=== PATIENT | female | born 1995 | race Caucasian/White ===

== ENCOUNTER 2017-09-12 11:49 | Day surgery (SDC) | payer SELFPAY ==
[2017-09-12 12:53] LABS: #Eosinphils 0.2 thou/uL (0.0-0.7); #Monocytes 0.5 thou/uL (0.11-0.59); #Neutrophils 5.6 thou/uL (1.40-6.50); %Basophils 0.1 % (0.0-1.0); %Eosinophils 1.9 % (0.0-10.0); %Lymphocytes 24.7 % (21.0-51.0); %Monocytes 5.5 % (0.0-10.0); %Neutrophils 67.8 % (42.0-75.0); Hemoglobin 12.8 g/dL (12.0-16.0); Mean Corpuscular HGB CONC 34.7 g/dL (32.0-36.0); Mean Corpuscular Hemoglobin 32.6 pg (27.0-31.0); Mean Platelet Volume 7.5 fL (7.4-10.4); Platelet Count 297 thou/uL (130-400); RBC Distribution Width 11.2 % (11.5-14.5); Red Blood Cell (RBC) Count 3.93 mill/uL (4.20-5.40); White Blood Cell (WBC) Count 8.3 thou/uL (4.8-10.8)
--- NOTE | 2017-09-12 13:08 | PDOC.EVN ---
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 There is a patient who is "7 mos" pregnanct there who came in s/p fall down 5 stairs at 1130 this AM. She has passed the ED triage and is clear and stable. cardiac activity confirmed in the ED. No VB, no LOF, no contractions. She is a [address] Johnson at [facility]. I advised the ED MD that she is ok to come to L&D for 4-6 hours OBS s/p fall per routine/protocol. L&D now aware. We willlet the Resident team know she is coming up as she is a seen by them.
[2017-09-12 13:13] LABS: ALT (SGPT) 10 U/L (8-55); AST (SGOT) 12 U/L (5-34); Albumin 3.4 g/dL (3.5-5.0); Alkaline Phosphatase 68 U/L (40-150); Anion Gap 13 mmol/L (10-20); BUN (Urea Nitrogen) 4 mg/dL (7.0-18.7); Bilirubin, Total 0.3 mg/dL (0.2-1.2); Calc. Creatinine Clearance 0 mL/min (70-130); Carbon Dioxide 20 mmol/L (22-29); Chloride 108 mmol/L (98-107); Estimated GFR-MDRD Greater than 90; Globulin 3.2 g/dL (2.4-3.5); Glucose 76 mg/dL (70-105); Protein, Total 6.6 g/dL (6.0-8.3); Sodium 137 mmol/L (136-145)
--- NOTE | 2017-09-12 15:19 | PDOC.LDHP ---
Labor and Delivery H&P Chief complaint: other (Patient here s/p Fall at 1130 this AM.) HPI: 22 yo multip, patient of the resident clinic, who fell walking on stairs..hit right lateral abdomen but no VB or LOF. Denies other issues. 28 weeks EGA. Patient first seen by the residents in L&D, now by me. Current gestational age (weeks): 28 Due date: 12/05/17 Dating criteria: first trimester ultrasound Grav: 5 Current complications: none Abnormal US findings: No Allergies/Adverse Reactions: Allergies Allergy/AdvReac Type Severity Reaction Status Date / Time No Known Allergies Allergy Unverified 09/12/17 14:39 Social history: other (Past hx craxk cocaine and MJ, also tobacco prior to this ) - Physical Exam Vital signs reviewed and normal: yes General: NAD Heart: RRR Lungs: CTAB Abdomen: gravid FHT: category 1 [place] contractions every: no real contraction pattern - Plan Plan: other (Assessment: Patient s/p fall on stairs with no overt evidence of PTL or abruption. Plan: 4 hour obs in L&D. Labs ordered by residents include blood type and KB. Order BPP for s/p fall. Follow for now.)
--- NOTE | 2017-09-12 15:23 | PDOC.LDHP ---
Labor and Delivery H&P Chief complaint: other (Fell down stairs) HPI: 22 yo @ 28 wks, dated by 1T US, is here after falling down stairs this morning. Says she woke up around 11 this morning and was going down her stairs and fell down 5-6 flights of stairs. Says she fell on her R. abdomen and back. Reports having a sharp pain down her abdomen briefly after. At this time denies any bleeding, LOF, ctx. Is feeling baby move. Denies any SOB or chest pain. Reports still having some lower bilateral pelvic pain. Not having pain on the R. side currenlty. Current gestational age (weeks): 28 Due date: 12/05/17 Dating criteria: first trimester ultrasound Grav: 6 Para: 3 (3640) OB History Details: No significant hx Current complications: none Abnormal US findings: No Past Medical History: Tobacco Abuse Marijuana and Crack/cocaine abuse Alcohol use Current medications: none Previous surgical history: none Social history: tobacco use (Before she knew she was . Does not smoke now. 1/2 -1 ppd smoker), alcohol use (Reported drinking before she knew she was ), drug use (Reported using marijuana and crack/cocaine before knowing she was ) - Physical Exam Vital signs reviewed and normal: yes General: NAD, resting Heart: RRR Lungs: nonlabored breathing Abdomen: gravid Extremeties: no edema FHT: category 1, variability present [place] contractions every: none - OB Labs Blood type: unknown RH: unknown Antibody Screen: unknown HIV: unknown RPR: unknown HEPSAg: unknown 1 hour GCT: unknown 3 hour GTT: unknown GBS: unknown - Assessment 22 yo @ 28 weeks here for assessment after abdominal trauma from falling down the stairs. - Plan Plan: observation in L&D -: Fall Down Stairs -BPP ordered. -KB test ordered to check for blood. -FHT monitoring for 4 hours. Cat 1 strip at this time. Moderate variability noted and accels seen. FHR 135-140. -Will continue to observe for now Noncompliant with meds -Not taking vitamin. Recommended she try the gummies Hx of Drug Abuse Early in -Reports Marijuana and Crack Cocaine use before she knew she was -Counseled on cessation. -Will want to check UDS upon delivery Hx of Smoking -Counseled on cessation <Zaire Quiroga - Last Filed: 09/12/17 15:20> - Plan Plan: observation in L&D (Faculty note: case reviewed. Agree with assessment and plan of care. Faculty H&P also in EMR. Patient's RH type has now returned as positive. BPP pending as of 1619.) <Kamaljit Barrios - Last Filed: 09/12/17 16:25> Allergies/Adverse Reactions: Allergies Allergy/AdvReac Type Severity Reaction Status Date / Time No Known Allergies Allergy Unverified 09/12/17 14:39
[2017-09-12] MEDS ORDERED: Lactated Ringer's 1,000 ML IV SCH (17:15)
--- NOTE | 2017-09-12 18:26 | ULT ---
LIMITED OBSTETRICAL ULTRASOUND BIOPHYSICAL PROFILE: Date: 09-12-17 History: 22-year-old female status post fall. Technique: Multiplanar grayscale sonographic imaging of the gravid uterus obtained. FINDINGS: anatomy is not fully assessed on this exam. Cervical length is approximately 5 cm. The placenta is located posteriorly demonstrating no evidence for previa or abruption. The placental tip is appro ximately 3.5 cm from the internal os. Breach presentation is noted. heart rate is approximately 119 beats/minute. Amniotic fluid index is 10 cm. The product assembler reports 2 out 2 score for tone, breathing, movement, and amniotic f luid for a normal 8 out of 8 biophysical profile score. IMPRESSION: Single intrauterine gestation demonstrating heart rate of 119 beats/minute in breach presentation. Po sterior placenta with no evidence for previa or obstruction. 8 out of 8 biophysical profile score. POS: [facility]
--- NOTE | 2017-09-12 19:31 | PDOC.EVN ---
Event Note - Event Note Event Note: 22 y/o @ 28 WGA who is here s/p fall down stairs. The patient contracted on the monitor for about an hour. She was just feeling minimal cramping during that time. Gave her a bolus of fluids and continued to watch her with external monitoring and toco. Her ctx resolved on the monitor. KB test was negative. Rh +. No vaginal bleeding. 02/02 BPP. -Will d/c home with close f/u at the Clinic. The patient has an appt scheduled for 09/16/17. Gave her strict instructions to return to the ED for any contractions, vaginal bleeding, loss of fluid, decreased movement. -Encouraged PO fluid intake and to continue taking PNV daily. <Violet Billingsley - Last Filed: 09/12/17 19:27> Assessment & Plan - Plan Plan/Continue to require rehab level of care: faculty note: Agree with plan of care. No evidence maternal nor compromise. KB is negative which reduces risk of PTL at this time. <Kamaljit Barrios - Last Filed: 09/12/17 19:34>
== END 2017-09-12 20:00 | disposition home or self-care (01) ==
LOC: ERS 11:49 → L&D/OP 14:03
PROVIDERS: ATTEND Obstetrics & Gynecology
DX: O9A.213 Injury, poisoning and certain other consequences of external causes complicating pregnancy, third trimester (principal); Z3A.28 28 weeks gestation of pregnancy
CPT/HCPCS: 36415; 76819; 80053; 85025; 85460; 86900; 86901

== ENCOUNTER 2017-10-11 14:17 | Day surgery (SDC) | payer OTHER, SELFPAY ==
[2017-10-11 15:18] VITALS: BMI 32.1
--- NOTE | 2017-10-11 15:49 | PDOC.LDHP ---
Labor and Delivery H&P Chief complaint: other (spotting for 3 days and left lower quadrant pain) HPI: Zaina Dukes is a 22 yo F at 32.1 wks based on 1T US with EDC of November. She presents to the L&D today with a three day history of vaginal spotting, states that the spotting is approximately dime sized and occurs about 3-4 times throughout the day. She endorses an light green vaginal discharge as well for the last few days. She denies loss of fluid, decreased movement , contractions. She does state that she has some constant lower abdominal pain that occasionally moves over to the right lower abdomen. Denies fever, chills, dysuria, increased urinary frequency. Current gestational age (weeks): 32 (32.1) Due date: 12/05/17 Dating criteria: first trimester ultrasound (at 6.4 wks) Grav: 4 Para: 3 (3733) OB History Details: This has been normal with the exception of a fall down the stairs in August. Patient had three contractions at that time and was monitored in the L& D for about a day and discharged home. She has a history of marijuana and cocaine use early in . States she was using before she found out she was and stopped at that time. States she has not used drugs since that time. She has been positive for BV multiple times throughout this , treated with PO and top metronidazole. She also tested positive for chlamydia in mar/apr and she was treated and had a negative JOSUE in May. Current complications: none Abnormal US findings: No Past Medical History: None Current medications: none Previous surgical history: none Social history: drug use (endorses cocaine, marijuana use up to 6 wks gestation and quit when she found out she was and has not used them since) - Physical Exam Vital signs reviewed and normal: yes General: NAD, resting Heart: RRR Lungs: nonlabored breathing Abdomen: NTTP Extremeties: no edema FHT: category 1 (baseline 130, accels present, no decels, mod variability) [place] contractions every: none - Vaginal Exam cm dilated: 0 (deferred) - OB Labs Blood type: B RH: positive Antibody Screen: negative HIV: negative RPR: negative HEPSAg: negative Rubella: non-immune - Assessment (1) Vaginal Spotting: (2) Abd Pain: - Plan -: (1) Vaginal Spotting: - History of Positive Chlamydia s/p neg JOSUE and history of BV multiple times in this - Not zachary, no LOF, no decreased FM - Checking VP3, GC/Ch, and UA (2) Abd Pain: - Likely round ligament pain - recommend tylenol, warm bath <Chris Cardenas - Last Filed: 10/11/17 15:46> <Rory Murdock - Last Filed: 10/11/17 16:25> Allergies/Adverse Reactions: Allergies Allergy/AdvReac Type Severity Reaction Status Date / Time No Known Allergies Allergy Verified 10/11/17 15:01 Attending Addendum - Attending Addendum Date/Time: 10/11/17 5864 I personally evaluated the patient and discussed the management with Dr. Cardenas. I agree with the History, Examination, Assessment and Plan documented above with any addition or exceptions noted below. <Rory Murdock - Last Filed: 10/11/17 16:25>
[2017-10-11 16:30] LABS: Bilirubin Negative (Negative); Blood, Urine Negative (Negative); Clarity CLEAR (Clear); Glucose, Urine (Dipstick) 100 mg/dL (Negative); Leukocyte Negative (Negative); Nitrite Negative (Negative); Protein, Urine (Dipstick) Negative (Neg-Trace); Specific Gravity, Urine 1.013 (1.002-1.036); pH, Urine 6.5 (5.0-9.0)
[2017-10-11 16:32] LABS: Bacteria/HPF None Seen HPF (None Seen); Hyaline Casts/LPF 0-3 HYALINE CAST LPF (0-3 Hyaline); Pathc Cast-AUWi Flag 0.14 (0-2.49); RBC/HPF None Seen HPF (0-3); Squamous Epithelial 0-3 HPF (0-3); WBC/HPF 0-3 HPF (0-3)
[2017-10-13 00:56] LABS: Chlamydia by PCR Not Detected (NotDetected); GC by PCR Not Detected (NotDetected)
== END 2017-10-11 18:05 | disposition home or self-care (01) ==
LOC: L&D/OP 14:17
PROVIDERS: ATTEND Emergency Medicine
DX: O26.853 Spotting complicating pregnancy, third trimester (principal); O99.89 Other specified diseases and conditions complicating pregnancy, childbirth and the puerperium; R10.32 Left lower quadrant pain; F14.90 Cocaine use, unspecified, uncomplicated; F12.90 Cannabis use, unspecified, uncomplicated; Z3A.32 32 weeks gestation of pregnancy; Z87.42 Personal history of other diseases of the female genital tract; Z86.19 Personal history of other infectious and parasitic diseases
CPT/HCPCS: 51701; 81001; 87480; 87491; 87510; 87591; 87660; 99282; A4353

== ENCOUNTER 2017-10-23 11:05 | Day surgery (SDC) | payer OTHER ==
[2017-10-23 12:04] VITALS: BMI 37.4
[2017-10-23 13:05] LABS: Bilirubin Negative (Negative); Blood, Urine Negative (Negative); Clarity CLOUDY (Clear); Glucose, Urine (Dipstick) Negative (Negative); Leukocyte Moderate (Negative); Nitrite Negative (Negative); Protein, Urine (Dipstick) Negative (Neg-Trace); Specific Gravity, Urine 1.019 (1.002-1.036)
[2017-10-23 13:08] LABS: Bacteria/HPF 1+ HPF (None Seen); Hyaline Casts/LPF 4-6 HYALINE CAST LPF (0-3 Hyaline); Pathc Cast-AUWi Flag 0.72 (0-2.49)
[2017-10-23 13:10] LABS: RBC/HPF 0-3 HPF (0-3)
[2017-10-23 14:38] LABS: Amphetamine Not Detected (NotDetected); Barbiturates Screen Not Detected (NotDetected); Benzodiazepine Screen Not Detected (NotDetected); Cocaine Metabolite Screen Not Detected (NotDetected); Medtox Control Line Valid? VALID (VALID); Medtox Reader # READER 4; Methadone Not Detected (NotDetected); Methamphetamine Not Detected (NotDetected); Opiate Screen Not Detected (NotDetected); Oxycodone Screen Not Detected (NotDetected); Phencyclidine (PCP) Not Detected (NotDetected); THC/Cannabinoid Screen Not Detected (NotDetected); Tricyclic Screen Not Detected (NotDetected)
--- NOTE | 2017-10-23 20:44 | PDOC.LDHP ---
Addendum entered and electronically signed by Marbella Garcia MD 10/23/17 20:55: urine: squam epith 11-20, +LE, and 1+bact. Will await urine culture results. VP3 negative. Okay to dc patient and will follow-up on urine culture. Original Note: Labor and Delivery H&P Chief complaint: other (bilateral lowe back pain and lower abdominal pain) HPI: 22 yo @ 34.3wks by 6.4wk US presents to L&D for bilateral lower abdominal and lower back pain. She denies vaginal bleeding, vaginal fluid or discharge, or contractions. She endorses movement. She denies dysuria. She states she was here two weeks ago for vaginal bleeding but hasn't had any bleeding since then. GATE PERSON: Pap NILM Gen: denies weakness, fatigue HEENT: denies vision changes Abdomen: endorse bilateral lowe abdominal pain and suprapubic pain Cardio: denies chest pain Resp: denies shortness of breath or cough Skin: denies rash or lesions msk: endorses lowe back pain Current gestational age (weeks): 34 (34.3) Due date: 12/05/17 Dating criteria: first trimester ultrasound Grav: 4 Para: 3 (7587) OB History Details: deliveries all >37wks, ~6 lb babies, no complications per mom Current complications: other (anemia of ) Abnormal US findings: No Past Medical History: Crack cocaine abuse ~ 6wks gestation. Once she found out she was , she quit using and has had a negative UDS since then. Incarcerated during . Does not have custody of other children. Father of baby incarcerated. Current medications: pre-daniel vitamins Previous surgical history: none Social history: other (hx of crack cocaine abuse; quit ~6 weeks of ; does endorse smoking a cigarette in July; denies any alcohol use since early in her ) - Physical Exam Vital signs reviewed and normal: yes General: NAD, resting Heart: RRR Lungs: CTAB Abdomen: other (gravid; lowe back tender paper machine to CVA testing but tende at multiple locations (thoracic and lumbar).) Extremeties: no edema FHT: category 2, variable decelerations, variability present (moderate; accels present) [place] contractions every: not zachary - OB Labs Blood type: B RH: positive HIV: negative RPR: negative HEPSAg: negative 1 hour GCT: negative Urine drug screen: negative Rubella: non-immune Additional Labs: quant gold negative chlamydia +, JOSUE on 06/08/2017 negative gonorrhea negative UDS negative on 06/2017 Hep C NILM BV, treated - Assessment 22 yo @ 34.3wks by 6.4wk US and presents with bilateral lowe back and abdominal pain. - Plan -: Plan: 1.) Lower abdominal pain and lower back pain- Concern for UTI or vaginal infection. Will order a UA and culture and VP3. 2.)sIUP-normal second tri anatomy scan. Recommend routine follow-up with pcp 3.)Maternal hx of drug abuse-recent UDS negative 4.)Maternal hx of incarceration-quant gold negative and hep c negative 5.)Rubella nonimmune <Marbella Garcia - Last Filed: 10/23/17 20:36> <Christin Spencer - Last Filed: 10/24/17 09:09> Allergies/Adverse Reactions: Allergies Allergy/AdvReac Type Severity Reaction Status Date / Time No Known Allergies Allergy Verified 10/11/17 15:01 Attending Addendum - Attending Addendum Date/Time: 10/24/17905 I personally evaluated the patient and discussed the management with Dr. Morgan. I agree with the History, Examination, Assessment and Plan documented above with any addition or exceptions noted below. Pt seen and examined independently of resident. Pt with likely mechanical back pain associated with late . Urine culture pending. Will treat if indicated. Can d/c to home with close followup. Encouraged conservative measures for back pain in . Return precautions reviewed. <Christin Spencer - Last Filed: 10/24/17 09:09>
== END 2017-10-23 14:15 | disposition home or self-care (01) ==
LOC: L&D/OP 11:05
PROVIDERS: ATTEND Family Medicine
DX: O99.89 Other specified diseases and conditions complicating pregnancy, childbirth and the puerperium (principal); R10.30 Lower abdominal pain, unspecified; M54.5 Low back pain; O99.323 Drug use complicating pregnancy, third trimester; F14.10 Cocaine abuse, uncomplicated; O99.333 Smoking (tobacco) complicating pregnancy, third trimester; F17.210 Nicotine dependence, cigarettes, uncomplicated; Z79.899 Other long term (current) drug therapy; Z3A.34 34 weeks gestation of pregnancy
CPT/HCPCS: 80306; 81003; 81015; 87086; 87480; 87510; 87660; 99284

== ENCOUNTER 2017-11-17 15:03 | Day surgery (SDC) | payer OTHER ==
[2017-11-17 15:50] VITALS: BMI 34.3
--- NOTE | 2017-11-17 17:00 | PDOC.LDHP ---
Labor and Delivery H&P Chief complaint: contractions HPI: 22 yo @ 37.3 WGA by 6.4 wk US presents with regular painful contractions since a little after 11 am this morning. Pt states that she had an appt at [facility] earlier this morning where she was checked and told that she was dilated to 1cm. Shortly after leaving, she began having contractions q6-10min which then became more frequent, every 4-5 min, so she came into L&D for cervical check. Denies any VB or LOF but has noticed some thick, mucous-like material on her underwear. +FM complications: 1) Drug use in 2) Tobacco use in 3) Rubella non-immune 4) CT positive s/p treatment Current gestational age (weeks): 37 (3) Due date: 12/05/17 Dating criteria: first trimester ultrasound Grav: 4 Para: 3 Current complications: other (see above) Abnormal US findings: Yes (G) Current medications: none Previous surgical history: none Social history: none - Physical Exam Vital signs reviewed and normal: yes General: NAD Heart: RRR Lungs: CTAB Abdomen: NTTP Extremeties: no edema FHT: category 1 (baseline 130, moderate variability) [place] contractions every: 4-6 min - Vaginal Exam cm dilated: 2 Effacement: 50% Station: -3 - OB Labs Blood type: B RH: positive Antibody Screen: negative HIV: negative RPR: negative 1 hour GCT: negative (128) GBS: negative (per pt) Urine drug screen: negative (08/24/17) Rubella: non-immune Additional Labs: Hep C negative TB screen negative Ucx negative Quad screen negative Pap NILM - Assessment Latent labor - Plan Plan: other (discharge to home) -: 22 yo @ 37.3 by 6.4 wk US presents w/: 1) sIUP in latent labor: minimal interval cervical change, ok to discharge home. Labor precautions reviewed. Pt lives a short distance (7 min) from the hospital. 2) Drug use in : recent UDS in all negative; UDS sent 3) Tobacco use in : states that she has quit 4) Rubella non-immune: will need MMR 5) CT positive s/p treatment: negative JOSUE in 2T, plan was to repeat in 3T, need updated records. <Duarte Llanes - Last Filed: 11/17/17 16:55> <Deja Adame - Last Filed: 11/18/17 13:13> Allergies/Adverse Reactions: Allergies Allergy/AdvReac Type Severity Reaction Status Date / Time No Known Allergies Allergy Verified 10/11/17 15:01 Attending Addendum - Attending Addendum Date/Time: 11/18/17 7044 I personally evaluated the patient and discussed the management with Dr. Llanes I agree with the History, Examination, Assessment and Plan documented above with any addition or exceptions noted below. Nonpainful, intermittent contractions. Unchanged exam. FHT cat 1. Latent labor. Precautions discussed. Patient to return if symptoms progress or she becomes concerned. ABrayMD <Deja Adame - Last Filed: 11/18/17 13:13>
[2017-11-17 17:36] LABS: Amphetamine Not Detected (NotDetected); Barbiturates Screen Not Detected (NotDetected); Benzodiazepine Screen Not Detected (NotDetected); Cocaine Metabolite Screen Not Detected (NotDetected); Medtox Control Line Valid? VALID (VALID); Medtox Reader # READER 4; Methadone Not Detected (NotDetected); Methamphetamine Not Detected (NotDetected); Opiate Screen Not Detected (NotDetected); Oxycodone Screen Not Detected (NotDetected); Phencyclidine (PCP) Not Detected (NotDetected); THC/Cannabinoid Screen Not Detected (NotDetected); Tricyclic Screen Not Detected (NotDetected)
== END 2017-11-17 17:19 | disposition home or self-care (01) ==
LOC: L&D/OP 15:03
PROVIDERS: ATTEND Emergency Medicine
DX: O47.1 False labor at or after 37 completed weeks of gestation (principal); O99.323 Drug use complicating pregnancy, third trimester; O99.333 Smoking (tobacco) complicating pregnancy, third trimester; Z3A.37 37 weeks gestation of pregnancy
CPT/HCPCS: 80306; 99282

== ENCOUNTER 2017-11-17 23:48 | Day surgery (SDC) | payer OTHER ==
[2017-11-18 00:16] VITALS: BMI 34.3
[2017-11-18 00:34] LABS: Amnisure Internal Control QC ACCEPTABLE (ACCEPTABLE)
[2017-11-18 00:45] LABS: Amnisure Test No Membranes Rupture (No Rupture)
--- NOTE | 2017-11-18 01:12 | PDOC.LDHP ---
Labor and Delivery H&P Chief complaint: contractions, loss of fluid HPI: Zaina Dukes is a 22 year old @ 37.4 wks by 6.4 wk US presents with regular painful contractions starting at 11 am on 11/17/17. She came to [facility] L&D and her check was 50/-3 and she made no change after 2 hours. She was discharged and has continued to have contractions. At approximately 9 pm, patient states that she started noticing leakage of fluid when she goes to the restroom. States that the fluid is clear. Denies vaginal discharge and vaginal bleeding. She states that her contractions are more frequent compared to yesterday. They are now every 5 minutes. +FM. Complications: 1) Drug use in 2) Tobacco use in 3) Rubella non-immune 4) CT positive s/p treatment Current gestational age (weeks): 37 (4) Due date: 12/05/17 Dating criteria: first trimester ultrasound Grav: 4 Para: 3 (7643) Current complications: other (see above) Current medications: pre- vitamins Previous surgical history: none Social history: tobacco use, alcohol use, drug use - Physical Exam Vital signs reviewed and normal: yes General: NAD, resting, breathing through contractions Heart: RRR Lungs: nonlabored breathing Abdomen: NTTP Extremeties: no edema FHT: category 1 - Vaginal Exam cm dilated: 2 Effacement: 50% Station: -3 - OB Labs Blood type: B RH: positive Antibody Screen: negative HIV: negative RPR: negative 1 hour GCT: negative (128) GBS: negative (per pt) Urine drug screen: negative (08/24/17) Rubella: non-immune - Assessment Latent Labor - Plan Plan: other -: 22 yo @ 37.4 by 6.4 wk US presents with: 1) sIUP in latent labor: no cervical exchange administrator the last 10 hours. Okay to discharge home. Labor precautions reviewed. Patient lives close to hospital, approximately 7 min away. 2) Drug use in : recent UDS was all negative, UDS sent yesterday 3) Tobacco use in : endorse use early in but no more 4) Rubella non-immune: will need MMR 5) Chlamydia positive: s/p treatment. Neg carline in 2T. Plan was to repeat in 3T. <Ronald,Chris - Last Filed: 11/18/17 01:06> <Yuval Johnson - Last Filed: 11/18/17 07:11> Allergies/Adverse Reactions: Allergies Allergy/AdvReac Type Severity Reaction Status Date / Time No Known Allergies Allergy Verified 10/11/17 15:01 Attending Addendum - Attending Addendum Date/Time: 11/18/17 0710 I personally evaluated the patient and discussed the management with Dr. Cardenas. I agree with and repeated valdes portions the History, Examination, Assessment and Plan documented above with any addition or exceptions noted below. Not in labor. Not ruptured. Ok for d/c home. Discussed return precautions. <Yuval Johnson - Last Filed: 11/18/17 07:11>
== END 2017-11-18 01:25 | disposition home or self-care (01) ==
LOC: L&D/OP 23:48
PROVIDERS: ATTEND Emergency Medicine
DX: O47.1 False labor at or after 37 completed weeks of gestation (principal); Z3A.37 37 weeks gestation of pregnancy; Z79.899 Other long term (current) drug therapy
CPT/HCPCS: 84112; 99283

== ENCOUNTER 2017-11-21 22:58 | Day surgery (SDC) | payer OTHER ==
[2017-11-21 23:36] VITALS: BP 133/72; TEMP 98.9; BMI 34.3
--- NOTE | 2017-11-22 02:06 | PDOC.LDHP ---
Labor and Delivery H&P Chief complaint: contractions HPI: 22 yo dated by 1T US here with complaint of contractions for the past week that have worsened over the past 12 hours. She states that they have been every 6-10 minutes all day. She denies decreased movement, vaginal bleeding, or loss of fluid. Her has been complicated by drug use during the first trimester. Current gestational age (weeks): 38 Due date: 12/05/17 Dating criteria: last menstrual period, first trimester ultrasound Grav: 4 Para: 3 (7588) Current complications: other (Drug use during 1T) Current medications: pre- vitamins Previous surgical history: none Social history: tobacco use (previous), alcohol use (not during ), drug use (previous) - Physical Exam Vital signs reviewed and normal: yes General: NAD Heart: RRR Lungs: CTAB Abdomen: gravid Extremeties: no edema FHT: category 1, variability present, absent or minimal variables [place] contractions every: 10 - Vaginal Exam cm dilated: 2 Effacement: 50% Station: -3 - OB Labs Blood type: B RH: positive Antibody Screen: negative HIV: negative RPR: negative HEPSAg: negative 1 hour GCT: negative GBS: negative Urine drug screen: negative (08/24/17) Rubella: non-immune - Assessment Term , latent labor - Plan -: This is a 22 yo at 38 weeks gestation who is currently in latent labor. monitor shows cat1 strip. No concern for ROM. SVE is similar to last check 3 days ago. Monitor on L&D for 2 hours and recheck. Continue to monitor if there is change otherwise will discharge with follow up at [facility] as previously scheduled. <Teofilo Haque - Last Filed: 11/22/17 02:04> <Deja Adame - Last Filed: 11/22/17 20:22> Allergies/Adverse Reactions: Allergies Allergy/AdvReac Type Severity Reaction Status Date / Time No Known Allergies Allergy Verified 11/21/17 23:37 Attending Addendum - Attending Addendum Date/Time: 11/22/17 0200 I personally evaluated the patient and discussed the management with Dr. Haque and Dr. Mora I agree with the History, Examination, Assessment and Plan documented above with any addition or exceptions noted below. 22 yo female at 38.0 wks presents for rule out labor. Patient reports mildly, painful contractions every 10 or so minutes. No VB, LOF, or discharge. + FM. SVE unchanged over 2 hours of monitoring. FHT cat 1 and reassuring. Precautions discussed. Follow up with PCP on . Ok to d/c to home. Valerio <Deja Adame - Last Filed: 11/22/17 20:22>
== END 2017-11-22 01:57 | disposition home or self-care (01) ==
LOC: L&D/OP 22:58
PROVIDERS: ATTEND Student in an Organized Health Care Education/Training Program
DX: O47.1 False labor at or after 37 completed weeks of gestation (principal); O99.333 Smoking (tobacco) complicating pregnancy, third trimester; F17.200 Nicotine dependence, unspecified, uncomplicated; Z3A.38 38 weeks gestation of pregnancy; Z79.899 Other long term (current) drug therapy
CPT/HCPCS: 99283

== ENCOUNTER 2017-11-29 08:28 | Day surgery (SDC) | payer OTHER ==
[2017-11-29 08:51] VITALS: BMI 35.3
[2017-11-29 10:43] LABS: Amnisure Internal Control QC ACCEPTABLE (ACCEPTABLE); Amnisure Test No Membranes Rupture (No Rupture)
[2017-11-29 11:11] VITALS: BP 125/70; TEMP 98.6
[2017-11-29 11:11] LABS: Bilirubin Negative (Negative); Blood, Urine Negative (Negative); Clarity CLEAR (Clear); Glucose, Urine (Dipstick) Negative (Negative); Leukocyte Negative (Negative); Nitrite Negative (Negative); Protein, Urine (Dipstick) Negative (Neg-Trace); Specific Gravity, Urine 1.022 (1.002-1.036)
[2017-11-29 11:21] LABS: Medtox Reader # READER 1; THC/Cannabinoid Screen Not Detected (NotDetected)
[2017-11-29 11:22] LABS: Amphetamine Not Detected (NotDetected); Barbiturates Screen Not Detected (NotDetected); Benzodiazepine Screen Not Detected (NotDetected); Cocaine Metabolite Screen Not Detected (NotDetected); Medtox Control Line Valid? VALID (VALID); Methadone Not Detected (NotDetected); Methamphetamine Not Detected (NotDetected); Opiate Screen Not Detected (NotDetected); Oxycodone Screen Not Detected (NotDetected); Phencyclidine (PCP) Not Detected (NotDetected); Tricyclic Screen Not Detected (NotDetected)
--- NOTE | 2017-11-29 12:17 | PDOC.FPRHP ---
- History of Present Illness Chief Complaint: Brown vaginal spotting, possible LOF History of Present Illness: 22 year old G - Allergies/Adverse Reactions Allergies Allergy/AdvReac Type Severity Reaction Status Date / Time No Known Allergies Allergy Verified 11/21/17 23:37 - Home Medications Medication Instructions Recorded Confirmed Type No Known [No Known] 11/29/17 11/29/17 History - History PMHx: PSHx: FHx: Social: - Vital signs BP: [] HR: [] RR: [] Tmax: [] Pox: []% on [] Wt: [] FMR H&P: Results - Labs Lab results: Urine Ketones Negative mg/dL (Negative) 11/29/17 10:40 Urine Blood Negative (Negative) 11/29/17 10:40 Urine Nitrite Negative (Negative) 11/29/17 10:40 Ur Leukocyte Esterase Negative (Negative) 11/29/17 10:40 FMR H&P: Upper Level - Plan Date/Time: 11/29/17 1217 I, [], have evaluated this patient and agree with findings/plan as outlined by internet project manager resident. Pertinent changes/additions are listed here.
--- NOTE | 2017-11-29 21:27 | PDOC.LDHP ---
Labor and Delivery H&P Chief complaint: loss of fluid (Possible), other (Brown discharge) HPI: 22 year old at 39.1 wks by 1T US/LMP with MILKA of 12/05/2017 presents with brown vaginal spotting and possible LoF. She states that over the last two days she has felt as though she is leaking fluid. She has been soaking through several pads a day. Additionally, she went to wipe after using the restroom today and noted brown, bloody mucous on her toilet paper. She got concerned and decided to come to L&D. Patient denies contractions but endorses pressure in lower back that presents periodically. She denies abdominal pain, headaches, vision changes, shortness of breath, or swelling. ROS: General: Denies fever, chills, changes in appetite HEENT: Denies vision changes, headache, or sore throat Cards: Denies chest pain or palpitations Resp: Denies shortness of breath or cough AKILA: Denies edema or Joint pains GI: Denies abdominal pain, diarrhea, or constipation : Denies dysuria. Endorses urinary frequency Current gestational age (weeks): 39 (39.1) Due date: 12/05/17 Dating criteria: last menstrual period, first trimester ultrasound Grav: 4 Para: 3 OB History Details: 1. Chlamydia with negative JOSUE 2. History of drug abuse in early 3. Rubella non-immune Current complications: none Abnormal US findings: No Past Medical History: 1. History of drug abuse Current medications: pre-daniel vitamins Social history: tobacco use (previous), drug use (in first trimester) - Physical Exam Vital signs reviewed and normal: yes General: NAD, resting Heart: RRR Lungs: CTAB Abdomen: gravid Extremeties: no edema FHT: category 1, variability present [place] contractions every: Irregular - Vaginal Exam cm dilated: 4 Effacement: 0% Station: -3 - OB Labs Blood type: B RH: positive Antibody Screen: negative HIV: negative RPR: negative Rubella: non-immune - Assessment 1. Possible LoF - Amnisure negative - Cervical check 4/0/-3 posterior on initial check; repeat check 2 hours later was the same 2. Brown vaginal spotting - Aminsure negative - UA negative - UDS negative - If persists, recommend VP3, GC/C in PNC 3. Latent labor - 4/0/-3; unchanged 2 hours later - Labor precautions given Labor precautions provided. Patient without cervical change and negative workup. Discharged home with return precautions. Advised to be seen in PNC tomorrow as scheduled. Patient voiced her understanding. - Plan Plan: observation in L&D <Pattie Jay - Last Filed: 11/29/17 21:40> <Rory Murdock - Last Filed: 11/30/17 08:35> Allergies/Adverse Reactions: Allergies Allergy/AdvReac Type Severity Reaction Status Date / Time No Known Allergies Allergy Verified 11/29/17 22:48 Attending Addendum - Attending Addendum Date/Time: 11/30/17 0834 I personally evaluated the patient and discussed the management with Dr. Jay. I agree with the History, Examination, Assessment and Plan documented above with any addition or exceptions noted below. <Rory Murdock - Last Filed: 11/30/17 08:35>
== END 2017-11-29 12:50 | disposition home or self-care (01) ==
LOC: L&D/OP 08:28 → ER/OP 08:28 → L&D/OP 12:50
PROVIDERS: ATTEND Emergency Medicine
DX: O26.853 Spotting complicating pregnancy, third trimester (principal); Z3A.39 39 weeks gestation of pregnancy; Z79.899 Other long term (current) drug therapy
CPT/HCPCS: 51701; 80306; 81003; 84112; 99284

== ENCOUNTER 2017-11-29 22:30 | Inpatient (IN) | payer OTHER ==
[2017-11-29] MEDS ORDERED: Promethazine HCl 25 MG/ML VIAL IM PRN (22:47)
[2017-11-29] MEDS ORDERED: Acetaminophen 500 MG TAB PO PRN (22:47)
[2017-11-29] MEDS ORDERED: Ondansetron HCl/PF 4 MG/2 ML Vial IVP PRN (22:47)
--- NOTE | 2017-11-29 22:52 | PDOC.EVN ---
Event Note - Event Note Event Note: JACKIE Loan Workout Officer: @2209 called into APU bed 2 for this patient that just arrived to the unit. She was seen earlier in the day. Patient of the Clinic, Dr Johnson. Called to see patient for passing vag clots at term. CX about 4cm...I arrived to the room with patient in moderate discomfort but NAD. Residents notified and arrived within 5 minutes of my call...I have turned care to the attending who is her physician. I have recommended abruption labs (fibronogen, T&C, PT/PTT ) and 2 IVs for now. Anesthesia to be notified. Exam by RN. Possible marginal placental abruption. Care by primary team now.
[2017-11-29 22:55] VITALS: BMI 35.3
[2017-11-29] MEDS ORDERED: Lactated Ringer's 1,000 ML IV SCH (23:00)
[2017-11-29 23:05] LABS: Hemoglobin 12.7 g/dL (12.0-16.0); Mean Corpuscular HGB CONC 34.6 g/dL (32.0-36.0); Mean Corpuscular Hemoglobin 30.8 pg (27.0-31.0); Mean Platelet Volume 8.4 fL (7.4-10.4); Platelet Count 254 thou/uL (130-400); RBC Distribution Width 12.1 % (11.5-14.5); Red Blood Cell (RBC) Count 4.12 mill/uL (4.20-5.40); White Blood Cell (WBC) Count 8.8 thou/uL (4.8-10.8)
[2017-11-29] MEDS ORDERED: Lidocaine 1% (PF) 30 ML VIAL SC PRN (23:09)
[2017-11-29 23:14] LABS: Fibrinogen 467 mg/dL (253-463)
[2017-11-29 23:15] LABS: INR-International Normal Ratio 0.9; PTT 25.8 SEC (22.9-36.1); Prothrombin Time 12.5 SEC (12.0-14.7)
[2017-11-29 23:16] LABS: D-Dimer Test 1.01 *mcg/mL (0.27-0.43)
--- NOTE | 2017-11-29 23:18 | PDOC.LDHP ---
Labor and Delivery H&P Chief complaint: other (Vaginal Bleeding) HPI: 22 y/o @ 39.1 WGA by 6.4 wk sono presents due to vaginal bleeding. The patient was seen earlier today in L&D for some bloody mucus discharge, and had been zachary intermittently, but then was subsequently discharged. At 10 pm the patient reports she started bleeding significantly, and the bleeding was different than before. It was bright red blood. She continued to pass more blood with every contraction. Her ctx had become more regular and painful starting around 9pm. She denies any LOF. She reports some decreased movement today. Current gestational age (weeks): 39 (39w1d) Due date: 12/05/17 Dating criteria: first trimester ultrasound (6.4 wk US) Grav: 6 Para: 3 OB History Details: 3 Term 's 2 First Trimester SAB's Abnormal US findings: No Current medications: pre-daniel vitamins, other (Hydroxyzine) Social history: drug use (Crack cocaine use and Marijuana use earlier in (quit when 6 weeks )) - Physical Exam Vital signs reviewed and normal: yes General: NAD, breathing through contractions Heart: RRR Lungs: CTAB Abdomen: gravid Extremeties: no edema FHT: category 1, variability present [place] contractions every: 3-4 minutes - Vaginal Exam cm dilated: 5 Effacement: 90% Station: -3 - OB Labs Blood type: B RH: positive Antibody Screen: negative HIV: negative RPR: negative HEPSAg: negative 1 hour GCT: positive 3 hour GTT: negative GBS: negative Urine drug screen: negative Rubella: non-immune - Assessment 1. Vaginal Bleeding likely 2/2 Placental Abruption BP is stable, Cat I strip, Placenta is fundal, fetus is vertex. Mom is Rh positive and GBS negative. -Admit to L&D -Continous monitoring -PT/INR, PTT -Type & Screen 2 units -Fibrinogen -D dimer -Anticipate delivery at this time, concern that mom and baby may not tolerate vaginal delivery, but will do expectant management at this time. Counseled mom that may need to go back for if fetus does not tolerate labor. 2. Cocaine and Marijuana abuse during Pt reports that she quit early in . UDS were all negative in clinic. -UDS - Plan Plan: admit to L&D, informed consent obtained, anesthesia consult for pain management <Violet Billingsley - Last Filed: 11/29/17 23:32> <Christin Spencer - Last Filed: 11/30/17 00:55> Allergies/Adverse Reactions: Allergies Allergy/AdvReac Type Severity Reaction Status Date / Time No Known Allergies Allergy Verified 11/29/17 22:48 Attending Addendum - Attending Addendum Date/Time: 11/30/17 0052 I personally evaluated the patient and discussed the management with Dr. Billingsley I agree with the History, Examination, Assessment and Plan documented above with any addition or exceptions noted below. 30yo at 39w1d dated by 6w4d US presenting for vaginal bleeding that started around 10pm with passage of large clots complicated by drug use early in and excessive maternal weight gain Likely placental abruption causing bleeding. Abruption labs WNL at this time and FHT is category 1. Will manage expectantly at this time. If any signs of distress will move quickly toward <Christin Spencer - Last Filed: 11/30/17 00:55>
[2017-11-29 23:26] LABS: FSP-Qualitative ABNORMAL (Normal); FSP-Semiquantitative >=5 & <20 mcg/mL (Less than 5)
[2017-11-29] MEDS ORDERED: Bupivacaine 0.5% 20 ML, fentaNYL Citrate/PF 400 MCG in Sodium Chloride 0.9% 72 ML EPIDURAL SCH (23:45)
[2017-11-29] MEDS ORDERED: DISCONTINUE ALL PREVIOUS NARCOTICS FS SCH (23:45)
[2017-11-29] MEDS: Lactated Ringer's 1,000 ML IV SCH (23:52)
[2017-11-30 00:02] LABS: Syphilis Antibody Nonreactive (Nonreactive); Syphilis Antibody Index 0.02 S/CO (<1.00 Non-Reactive)
[2017-11-30 00:12] LABS: HBSAg Index 0.29 S/CO (0-0.99); HIV (1/2) Antibody/Antigen Non-Reactive (NonReactive); Hep B Surf Ag Non-Reactive S/CO (NonReactive)
--- NOTE | 2017-11-30 00:51 | PDOC.LDPN ---
Labor & Delivery Progress Note - Subjective Subjective: comfortable (vaginal bleeding has slowed down) - Objective Vital signs reviewed and normal: yes General: NAD Uterine fundus: non tender SVE: By Dr. Billingsley and Dr. Spencer Dilation: 5 Effacement: 90% Station: -3 FHT: category 1, variability present [place] contractions every: 2-3 minutes Plan: pitocin for augmentation, other (Pt just received epidural) <Violet Billingsley - Last Filed: 11/30/17 00:50> Attending Addendum - Attending Addendum Date/Time: 11/30/176 I personally evaluated the patient and discussed the management with Dr. Billingsley I agree with the History, Examination, Assessment and Plan documented above with any addition or exceptions noted below. No cervical mash filter cloth changer last few hours. FHT has been category 1 with accels, moderate variability and no decels. Reassuring tracing. Given likely abruption and need to move toward delivery quickly, will augment with pitocin at this time <Christin Spencer - Last Filed: 11/30/17 00:58>
[2017-11-30] MEDS ORDERED: Ibuprofen 800 MG TAB PO PRN (00:52)
[2017-11-30] MEDS: NS w/ Oxytocin 10 units 500 ML IV SCH (01:04)
[2017-11-30] MEDS ORDERED: Promethazine HCl 25 MG/ML VIAL IM PRN (01:12)
[2017-11-30] MEDS ORDERED: Ondansetron HCl/PF 4 MG/2 ML Vial IVP PRN ×2 (01:12→07:29)
[2017-11-30] MEDS ORDERED: Eucerin (Mineral Oil/Petrolatum,White) 30 gm Jar TOP PRN (01:12)
[2017-11-30] MEDS ORDERED: diphenhydrAMINE 50 MG/ML VIAL IVP PRN (01:12)
[2017-11-30] MEDS ORDERED: Lactated Ringer's 500 ML IV PRN (01:12)
[2017-11-30] MEDS ORDERED: Acetaminophen 325 MG TAB PO PRN (01:12)
[2017-11-30] MEDS ORDERED: ePHEDrine/0.9% NaCl/PF SYRINGE 50 mg/10 ml SLOW IVP PRN (01:12)
[2017-11-30] MEDS ORDERED: Naloxone HCl 0.4 mg/ml Vial IVP PRN ×2 (01:12)
[2017-11-30] MEDS ORDERED: Communication Order-Pharmacy FS SCH (01:15)
[2017-11-30] MEDS ORDERED: Fentanyl 4mcg/Marcaine 0.1% Cassette 100 ML EPIDURAL SCH (01:15)
[2017-11-30 01:19] LABS: Amphetamine Not Detected (NotDetected); Barbiturates Screen Not Detected (NotDetected); Benzodiazepine Screen Not Detected (NotDetected); Cocaine Metabolite Screen Not Detected (NotDetected); Medtox Control Line Valid? VALID (VALID); Medtox Reader # READER 4; Methadone Not Detected (NotDetected); Methamphetamine Not Detected (NotDetected); Opiate Screen Not Detected (NotDetected); Oxycodone Screen Not Detected (NotDetected); Phencyclidine (PCP) Not Detected (NotDetected); THC/Cannabinoid Screen Not Detected (NotDetected); Tricyclic Screen Not Detected (NotDetected)
--- NOTE | 2017-11-30 03:00 | PDOC.LDPN ---
Labor & Delivery Progress Note - Subjective Subjective: comfortable - Objective Vital signs reviewed and normal: yes General: NAD Uterine fundus: non tender SVE: @ [address] Billingsley Dilation: 6 Effacement: 90% Station: -3 FHT: category 2 (She had one late decel for 40 secs, but has otherwise been a cat 1 strip), variability present [place] contractions every: 2-3 minutes Plan: continue plan of care, pitocin for augmentation
[2017-11-30] MEDS ORDERED: Misoprostol 200 MCG TAB ONE (04:58)
[2017-11-30] MEDS ORDERED: Misoprostol 200 MCG TAB PR SCH (05:00)
[2017-11-30] MEDS: NS / Oxytocin 40 units/1000ml 1,000 ML IV PRN ×2 (05:32→06:25)
[2017-11-30] MEDS ORDERED: Measles/Mumps/Rubella 10 MCG/0.5 ML VIAL SC ONE (05:42)
[2017-11-30] MEDS ORDERED: Adacel (T-DAP) 0.5 ML VIAL IM ONE (07:29)
[2017-11-30] MEDS ORDERED: Bisacodyl 10 MG SUPP PR PRN (07:29)
[2017-11-30] MEDS ORDERED: Lanolin Ointment 7 GM TUBE TOP PRN (07:29)
[2017-11-30] MEDS ORDERED: Milk Of Magnesia 30 ML UDCUP PO PRN (07:29)
[2017-11-30] MEDS ORDERED: Benzocaine/Menthol 20-0.5% 60 ML CAN TOP PRN (07:29)
[2017-11-30] MEDS ORDERED: Bupivacaine HCl 0.5%/Epinephrine 1:200,000/PF 30 ml Vial ONE (08:27)
--- NOTE | 2017-11-30 08:46 | DN-2 ---
DELIVERING PHYSICIAN: Violet Billingsley MD ATTENDING PHYSICIAN: Dr. Yuval Johnson PROCEDURE: Spontaneous vaginal delivery. ANESTHESIA: Epidural. ESTIMATED BLOOD LOSS: 300 mL. POSTOPERATIVE DIAGNOSES: 1. Term intrauterine in labor. 2. Suspected placental abruption. 3. History of cocaine abuse during the first trimester of . 4. History of marijuana abuse during first trimester of . 5. Rubella nonimmune. 6. Excessive weight gain during . POSTOPERATIVE DIAGNOSES: 1. Term intrauterine , delivered. 2. Suspected placental abruption. 3. History of cocaine abuse during the first trimester of . 4. History of marijuana abuse during first trimester of . 5. Rubella nonimmune. 6. Excessive weight gain during . INDICATIONS: A 22-year-old female G6, P3-0-2-3 presents due to vaginal bleeding in latent labor. DELIVERY NOTE: This is a 22-year-old female G6, P3-0-2-3, at 39.2 weeks who delivered a viable male at 0435 a.m. on 11/30/2017. Following an uneventful antepartum course, a vigorous male was delivered over an intact perineum in the occipitoanterior position. Anterior shoulder and the remainder of the body delivered. No nuchal cord. The head was held down and the mouth and nares were bulb suctioned. Cord was clamped and cut and cord blood collected. Placenta delivered with 2-vessel cord noted. Fundal massage was performed and the fundus was firm. The cervix and vagina were inspected and found to be free of lacerations. The patient had several old appearing blood clots that were evacuated during fundal massage. The placenta was inspected and found to have a suspected marginal abruption. Infant went to nursery in good condition for routine care. Apgars were 8 and 9 at 1 and 5 minutes respectively. The patient tolerated delivery well and went to after routine recovery. [facility]
[2017-11-30] MEDS: Prenatal Vitamin 1 TAB PO SCH (09:30)
[2017-11-30] MEDS: Lactated Ringer's 1,000 ML IV SCH ×2 (09:50→16:07)
[2017-11-30] MEDS: Ferrous Sulfate 325 MG TAB PO SCH ×2 (10:48→18:51)
[2017-11-30] MEDS: Docusate Calcium (SURFAK) 240 MG CAP PO SCH ×2 (10:48→21:09)
[2017-11-30] MEDS: Ibuprofen 800 MG TAB PO SCH ×2 (14:32→21:08)
[2017-12-01] MEDS: Lactated Ringer's 1,000 ML IV SCH ×3 (00:49→19:33)
[2017-12-01] MEDS: NS w/ Oxytocin 10 units 500 ML IV SCH (00:49)
[2017-12-01] MEDS ORDERED: Measles/Mumps/Rubella 10 MCG/0.5 ML VIAL SC ONE (04:42)
[2017-12-01] MEDS: Ibuprofen 800 MG TAB PO SCH ×3 (05:31→22:00)
[2017-12-01 05:42] LABS: #Eosinphils 0.2 thou/uL (0.0-0.7); #Lymphocytes 2.8 thou/uL (1.20-3.40); #Monocytes 0.8 thou/uL (0.11-0.59); #Neutrophils 5.6 thou/uL (1.40-6.50); %Basophils 0.5 % (0.0-1.0); %Eosinophils 1.9 % (0.0-10.0); %Lymphocytes 29.8 % (21.0-51.0); %Monocytes 8.6 % (0.0-10.0); %Neutrophils 59.3 % (42.0-75.0); Hemoglobin 10.5 g/dL (12.0-16.0); Mean Corpuscular HGB CONC 33.1 g/dL (32.0-36.0); Mean Corpuscular Hemoglobin 29.8 pg (27.0-31.0); Mean Corpuscular Volume 90.1 fl (81.0-99.0); Mean Platelet Volume 8.1 fL (7.4-10.4); Platelet Count 221 thou/uL (130-400); RBC Distribution Width 12.4 % (11.5-14.5); Red Blood Cell (RBC) Count 3.52 mill/uL (4.20-5.40); White Blood Cell (WBC) Count 9.4 thou/uL (4.8-10.8)
[2017-12-01] MEDS: Prenatal Vitamin 1 TAB PO SCH (09:27)
[2017-12-01] MEDS: Ferrous Sulfate 325 MG TAB PO SCH ×2 (09:27→19:34)
[2017-12-01] MEDS: Docusate Calcium (SURFAK) 240 MG CAP PO SCH (09:27)
--- NOTE | 2017-12-01 09:58 | PDOC.PP ---
Post Progress Note Post Day #: 1 Subjective: Patient doing well. No significant overnight events. Patient ambulating without difficulty. Tolerating PO. Endorses back pain from where epidural was put in, but otherwise doing well. PO intake tolerated: yes Flatus: yes Ambulation: yes Vital Signs (12 hours) Temp Pulse Resp BP 12/01/17 08:44 98.6 F 66 18 120/73 12/01/17 04:00 97.8 F 62 16 110/64 12/01/17 00:00 98.0 F 68 16 119/61 Weight Weight 93.44 kg - Physical Examination General: NAD Cardiovascular: no m/r/g Respiratory: clear to auscultation bilaterally, non-labored breathing Abdominal: + bowel sounds, lochia (wnl), no distention, appropriately TTP Fundus firm & at: below umbilicus Neurological: no gross focal deficits Psychiatric: A&Ox3, normal affect Result Diagrams: 12/01/17 05:20 Additional Labs: Post Labs Blood Type B POSITIVE 11/29/17 22:50 Hep Bs Antigen Non-Reactive S/CO (NonReactive) 11/29/17 22:50 (1) Term delivered Code(s): O80 - ENCOUNTER FOR FULL-TERM UNCOMPLICATED DELIVERY Status: Acute (2) Placental abruption Code(s): O45.90 - PREMATURE SEPARATION OF PLACENTA, UNSP, UNSP TRIMESTER Status: Acute (3) Rubella nonimmune status, delivered, current hospitalization Code(s): O99.89 - OTH DISEASES AND CONDITIONS COMPL PREG/CHLDBRTH; Z28.3 - UNDERIMMUNIZATION STATUS Status: Acute (4) History of drug abuse Code(s): Z87.898 - PERSONAL HISTORY OF OTHER SPECIFIED CONDITIONS Status: Acute - Assessment/Plan 22 year old at 39.2 wks based on 6.4 wk u/s presented to L&D with overt vaginal bleeding. She was found to have placental abruption. TAGA male infant born via at 04:35 on 11/30/2017. Apgars were 8/9. Term intrauterine , delivered - Routine PP care - Encourage ambulation - Discuss PP contraception - Patient desires manager provider relations to be Dr. Caba; will call to schedule appt for Wednesday Placental abruption - No PP hemorrhage - Pt given 800 mg cytotec x1 after delivery - Lochia has been wnl - No complications History of maternal drug use in 1st trimester - Cocaine abuse in 1st trimester - Last several UDS have been negative, to include UDS on admission Dispo: Patient stable. Plan for d/c home today. <Pattie Jay - Last Filed: 12/01/17 09:55> Vital Signs (12 hours) Temp Pulse Resp BP 12/01/17 08:55 98.6 F 66 18 12/01/17 08:44 98.6 F 66 18 120/73 12/01/17 04:00 97.8 F 62 16 110/64 Weight Weight 93.44 kg Result Diagrams: 12/01/17 05:20 Additional Labs: Post Labs Blood Type B POSITIVE 11/29/17 22:50 Hep Bs Antigen Non-Reactive S/CO (NonReactive) 11/29/17 22:50 <Rory Murdock - Last Filed: 12/01/17 14:13> Attending Addendum - Attending Addendum Date/Time: 12/01/17 1412 I personally evaluated the patient and discussed the management with Dr. Jay. I agree with the History, Examination, Assessment and Plan documented above with any addition or exceptions noted below. Stable for discharge. <Rory Murdock - Last Filed: 12/01/17 14:13>
[2017-12-02] MEDS: Lactated Ringer's 1,000 ML IV SCH ×2 (06:44→09:16)
[2017-12-02] MEDS: Docusate Calcium (SURFAK) 240 MG CAP PO SCH ×2 (06:44→09:17)
[2017-12-02] MEDS: Ibuprofen 800 MG TAB PO SCH (06:51)
--- NOTE | 2017-12-02 07:15 | PDOC.PP ---
Post Progress Note Post Day #: 2 Subjective: Patient doing well this AM. No significant overnight events. She is bonding well with . She enjoys being around him. Patient states that she is ready to go back to [facility] where she will have some help with infant. PO intake tolerated: yes Flatus: yes Ambulation: yes Vital Signs (12 hours) Temp Pulse Resp 12/01/17 20:00 98.6 F 75 18 Weight Weight 93.44 kg - Physical Examination General: NAD Cardiovascular: no m/r/g, RRR Respiratory: clear to auscultation bilaterally, non-labored breathing Abdominal: + bowel sounds, lochia (wnl), appropriately TTP Neurological: no gross focal deficits Psychiatric: A&Ox3, normal affect Result Diagrams: 12/01/17 05:20 Additional Labs: Post Labs Blood Type B POSITIVE 11/29/17 22:50 Hep Bs Antigen Non-Reactive S/CO (NonReactive) 11/29/17 22:50 (1) Term delivered Code(s): O80 - ENCOUNTER FOR FULL-TERM UNCOMPLICATED DELIVERY Status: Acute (2) Placental abruption Code(s): O45.90 - PREMATURE SEPARATION OF PLACENTA, UNSP, UNSP TRIMESTER Status: Acute (3) Rubella nonimmune status, delivered, current hospitalization Code(s): O99.89 - OTH DISEASES AND CONDITIONS COMPL PREG/CHLDBRTH; Z28.3 - UNDERIMMUNIZATION STATUS Status: Acute (4) History of drug abuse Code(s): Z87.898 - PERSONAL HISTORY OF OTHER SPECIFIED CONDITIONS Status: Acute - Assessment/Plan 22 year old at 39.2 wks based on 6.4 wk u/s presented to L&D with overt vaginal bleeding. She was found to have placental abruption. TAGA male infant born via at 04:35 on 11/30/2017. Apgars were 8/9. Term intrauterine , delivered - Routine PP care - Discuss PP contraception; will decided at PNC visit in 2 weeks - Patient desires metal finish inspector to be Dr. Caba; will call to schedule appt for Sunday 12/03 Placental abruption - No PP hemorrhage - Pt given 800 mg cytotec x1 after delivery - Lochia has been wnl - No complications - Placental path still pending History of maternal drug use in 1st trimester - Cocaine abuse in 1st trimester - Last several UDS have been negative, to include UDS on admission Dispo: Patient stable. Plan for d/c home today. <Pattie Jay - Last Filed: 12/02/17 12:25> Vital Signs (12 hours) Temp Pulse Resp BP 12/02/17 08:00 98.5 F 75 18 12/02/17 07:49 98.5 F 75 18 126/71 Weight Weight 93.44 kg Result Diagrams: 12/01/17 05:20 Additional Labs: Post Labs Blood Type B POSITIVE 11/29/17 22:50 Hep Bs Antigen Non-Reactive S/CO (NonReactive) 11/29/17 22:50 <Rory Murdock - Last Filed: 12/02/17 16:48> Attending Addendum - Attending Addendum Date/Time: 12/02/17 7138 I personally evaluated the patient and discussed the management with Dr. Jay. I agree with the History, Examination, Assessment and Plan documented above with any addition or exceptions noted below. <Rory Murdock - Last Filed: 12/02/17 16:48>
[2017-12-02 07:50] VITALS: BP 126/71; TEMP 98.5
[2017-12-02] MEDS: NS w/ Oxytocin 10 units 500 ML IV SCH (09:15)
[2017-12-02] MEDS: Ferrous Sulfate 325 MG TAB PO SCH (09:16)
[2017-12-02] MEDS: Prenatal Vitamin 1 TAB PO SCH (09:18)
== END 2017-12-02 13:45 | disposition home or self-care (01) | DRG 774 ==
LOC: L&D/OP 22:30 → L&D 23:12 → 3SW 11-30 07:11
PROVIDERS: ADMIT Family Medicine; ATTEND Family Medicine
PROC: 10E0XZZ Delivery of Products of Conception, External Approach (ICD-10-PCS; principal; 2017-11-29)
PROC: 4A0HXCZ Measurement of Products of Conception, Cardiac Rate, External Approach (ICD-10-PCS; 2017-11-29)
PROC: 0UC97ZZ Extirpation of Matter from Uterus, Via Natural or Artificial Opening (ICD-10-PCS; 2017-11-29)
PROC: 3E0234Z Introduction of Serum, Toxoid and Vaccine into Muscle, Percutaneous Approach (ICD-10-PCS; 2017-11-29)
DX: O45.93 Premature separation of placenta, unspecified, third trimester (principal); O26.03 Excessive weight gain in pregnancy, third trimester; Z3A.39 39 weeks gestation of pregnancy; Z37.0 Single live birth; O76 Abnormality in fetal heart rate and rhythm complicating labor and delivery; O99.89 Other specified diseases and conditions complicating pregnancy, childbirth and the puerperium; Z87.898 Personal history of other specified conditions; Z23 Encounter for immunization
CPT/HCPCS: 36415; 51701; 51702; 80306; 81003; 84112; 85025; 85027; 85362; 85379; 85384; 85610; 85730; 86780; 86850; 86900; 86901; 87340; 87389; 88307; 90707; 99284; 99285; J0670; J3010; J3490; J7050

== ENCOUNTER 2018-08-18 22:33 | Emergency (ER) | payer OTHER, SELFPAY ==
--- NOTE | 2018-08-19 08:06 | RAD ---
THREE VIEWS RIGHT FOOT: DATE: 08/18/2018. HISTORY: Worsening right foot and ankle pain. The patient reports injury 2 years ago. FINDINGS: The Lisfranc joint appears normally aligned on provided images. No fracture, dislocation, or other o sseous abnormality is seen involving the right foot. IMPRESSION: No acute osseous abnormality. POS: [facility]
== END 2018-08-19 00:20 | disposition home or self-care (01) ==
LOC: ERS 22:33
DX: M79.671 Pain in right foot (principal); F17.290 Nicotine dependence, other tobacco product, uncomplicated

== ENCOUNTER 2018-08-31 02:28 | Emergency (ER) | payer SELFPAY ==
[2018-08-31 02:59] LABS: Pregnancy Test - Urine (BHCG) Negative (Negative); Pregu Control Background? CLEAR/WHITE (CLR/WHITE); Pregu Control Bar Appear? YES (CONTROL BAR); Specific Gravity 1.022 (1.002-1.036)
== END 2018-08-31 03:10 | disposition home or self-care (01) ==
LOC: ERS 02:28
DX: N93.9 Abnormal uterine and vaginal bleeding, unspecified (principal); F17.290 Nicotine dependence, other tobacco product, uncomplicated
CPT/HCPCS: 81025; 99283

== ENCOUNTER 2020-03-17 10:51 | Emergency (ER) | payer SELFPAY ==
[2020-03-17 12:25] LABS: Bacteria/HPF None Seen HPF (None Seen); Bilirubin Negative (Negative); Blood, Urine Negative (Negative); Clarity Clear (Clear); Glucose, Urine (Dipstick) Normal (Negative); Ketone, Urine Negative (Negative); Leukocyte 250 Leu/uL (Negative); Nitrite Negative (Negative); Protein, Urine (Dipstick) Negative (Neg-Trace); RBC/HPF 0-3 HPF (0-3); Specific Gravity, Urine 1.015 (1.002-1.036); Squamous Epithelial 0-3 HPF (0-3); Urobilinogen Normal mg/dL (Less than 2); WBC/HPF 0-3 HPF (0-3); pH, Urine 6.5 (5.0-9.0)
[2020-03-17 12:30] LABS: Pregnancy Test - Urine (BHCG) Negative (Negative); Pregu Control Background? CLEAR/WHITE (CLR/WHITE); Pregu Control Bar Appear? YES (CONTROL BAR); Specific Gravity 1.015 (1.002-1.036)
== END 2020-03-17 12:07 | disposition left against medical advice (07) ==
LOC: ERS 10:51
DX: Z53.21 Procedure and treatment not carried out due to patient leaving prior to being seen by health care provider (principal)
CPT/HCPCS: 81003; 81015; 81025

== ENCOUNTER 2021-03-16 20:43 | Emergency (ER) | payer SELFPAY ==
[2021-03-16 23:32] LABS: Pregnancy Test - Urine (BHCG) Negative (Negative); Pregu Control Background? CLEAR/WHITE (CLR/WHITE); Pregu Control Bar Appear? YES (CONTROL BAR); Specific Gravity 1.019 (1.002-1.036)
[2021-03-16 23:34] LABS: Bilirubin Negative (Negative); Blood, Urine 1+ (Negative); Clarity Turbid (Clear); Glucose, Urine (Dipstick) Normal (Negative); Ketone, Urine Negative (Negative); Leukocyte 500 Leu/uL (Negative); Mucous/LPF 1+ LPF (<2+); Nitrite Negative (Negative); Protein, Urine (Dipstick) 20 mg/dL (Neg-Trace); Specific Gravity, Urine 1.019 (1.002-1.036); Squamous Epithelial 21-50 HPF (0-3); Urobilinogen Normal mg/dL (Less than 2); WBC/HPF Greater than 50 HPF (0-3)
[2021-03-16 23:35] LABS: Bacteria/HPF 1+ HPF (None Seen)
[2021-03-18 20:13] LABS: Chlamydia by PCR DETECTED (NotDetected); GC by PCR Not Detected (NotDetected)
== END 2021-03-17 01:23 | disposition home or self-care (01) ==
LOC: ERS 20:43
DX: N73.9 Female pelvic inflammatory disease, unspecified (principal); F17.290 Nicotine dependence, other tobacco product, uncomplicated
CPT/HCPCS: 81003; 81015; 81025; 87480; 87491; 87510; 87591; 87660; 99284

== ENCOUNTER 2021-03-27 07:01 | Outpatient (CLI) | payer MEDICAID | END 2021-03-27 07:02 | disposition home or self-care (01) | LOC: BICULT 07:01 | PROVIDERS: ATTEND Nurse Practitioner Women's Health | DX: R10.2 Pelvic and perineal pain (principal); Z97.5 Presence of (intrauterine) contraceptive device | CPT/HCPCS: 76856 ==

== ENCOUNTER 2021-07-11 12:50 | Outpatient (CLI) | payer MEDICAID | END 2021-07-11 12:51 | disposition home or self-care (01) | LOC: ULT 12:50 | PROVIDERS: ATTEND Nurse Practitioner Women's Health | DX: R10.2 Pelvic and perineal pain (principal); Z97.5 Presence of (intrauterine) contraceptive device | CPT/HCPCS: 76856 ==

== ENCOUNTER 2021-10-25 20:06 | Emergency (ER) | payer MEDICAID, SELFPAY ==
[2021-10-25] MEDS ORDERED: Acetaminophen 500 MG TAB ONE (20:44)
== END 2021-10-25 21:23 | disposition home or self-care (01) ==
LOC: ERS 20:06
DX: T23.141A Burn of first degree of multiple right fingers (nail), including thumb, initial encounter (principal); E78.5 Hyperlipidemia, unspecified; F17.290 Nicotine dependence, other tobacco product, uncomplicated; W26.8XXA Contact with other sharp object(s), not elsewhere classified, initial encounter
CPT/HCPCS: 99283

== ENCOUNTER 2022-07-31 21:16 | Emergency (ER) | payer SELFPAY ==
[2022-08-01 00:56] LABS: Bacteria/HPF 1+ HPF (None Seen); Bilirubin Negative (Negative); Blood, Urine Trace (Negative); Clarity Clear (Clear); Glucose, Urine (Dipstick) Normal (Negative); Ketone, Urine Negative (Negative); Leukocyte Negative Leu/uL (Negative); Nitrite Negative (Negative); Pregnancy Test - Urine (BHCG) Negative (Negative); Pregu Control Background? CLEAR/WHITE (CLR/WHITE); Pregu Control Bar Appear? YES (CONTROL BAR); Protein, Urine (Dipstick) 20 mg/dL (Neg-Trace); Specific Gravity 1.028 (1.002-1.036); Specific Gravity, Urine 1.028 (1.002-1.036); Squamous Epithelial 0-3 HPF (0-3); Urobilinogen Normal mg/dL (Less than 2); pH, Urine 6.5 (5.0-9.0)
[2022-08-01] MEDS ORDERED: Lidocaine 1% MPF 2 ML VIAL ONE (01:58)
[2022-08-01] MEDS ORDERED: cefTRIAXone\\ROCEPHIN 500 MG VIAL ONE (01:58)
[2022-08-01] MEDS ORDERED: Ketorolac Tromethamine 30 MG/ML VIAL ONE (01:58)
[2022-08-01 20:59] LABS: Chlamydia by PCR Not Detected (NotDetected); GC by PCR Not Detected (NotDetected)
== END 2022-08-01 04:22 | disposition home or self-care (01) ==
LOC: ERS 21:16
DX: N76.0 Acute vaginitis (principal); E78.5 Hyperlipidemia, unspecified; F17.290 Nicotine dependence, other tobacco product, uncomplicated
CPT/HCPCS: 76856; 81003; 81015; 81025; 87480; 87491; 87510; 87591; 87660; J0696; J1885

== ENCOUNTER 2022-12-14 12:14 | Emergency (ER) | payer MEDICAID, SELFPAY | END 2022-12-14 13:31 | disposition home or self-care (01) | LOC: ERS 12:14 | DX: K04.7 Periapical abscess without sinus (principal) | CPT/HCPCS: 99282 ==

== ENCOUNTER 2023-01-23 00:44 | Emergency (ER) | payer SELFPAY | END 2023-01-23 02:23 | disposition home or self-care (01) | LOC: ERS 00:44 | DX: L02.214 Cutaneous abscess of groin (principal) | CPT/HCPCS: 99282 ==

== ENCOUNTER 2023-08-23 10:52 | Outpatient (CLI) | payer MEDICAID | END 2023-08-23 10:53 | disposition home or self-care (01) | LOC: BICULT 10:52 | PROVIDERS: ATTEND Nurse Practitioner Women's Health | DX: N63.21 Unspecified lump in the left breast, upper outer quadrant (principal) ==